=== PATIENT | male | born 1940 | race Caucasian/White ===

== ENCOUNTER 2019-07-30 01:33 | Emergency (ER) | payer OTHER ==
[~2019-07-30] VITALS: Ht 180.3 cm; Wt 77.1 kg
[2019-07-30 01:36] VITALS: BP_SYST 167
--- NOTE | 2019-07-30 01:38 | NUR ---
Patient to ER bed 5 to gown for evaluation. Side rails up. Report given to PETER DELGADO.
--- NOTE | 2019-07-30 02:00 | NUR ---
Dr. Huff bedside for Pt eval
--- NOTE | 2019-07-30 02:10 | NUR ---
Pt BIB [facility] C/O LEFT SHOULDER PAIN. No other complaints and or injuries noted VSS no s/s of acute distress Resting on gurney rails up
--- NOTE | 2019-07-30 02:38 | NUR ---
Portable X Ray bedside, well tolerated
--- NOTE | 2019-07-30 03:20 | NUR ---
Patient daugther given written and verbal discharge instructions by Dr Huff and verbalizes understanding. ER MD discussed with patient the results and treatment provided. Patient in stable condition. ID arm band removed. Rx of Naprosyn given. Patient educated on pain management and to follow up with PMD. Pain Scale 0/10. Opportunity for questions provided and answered. Medication side effect fact sheet provided.
[2019-07-30 03:21] VITALS: BP_SYST 150
== END 2019-07-30 03:21 | disposition home or self-care (01) ==
LOC: SED 01:33
DX: S43.402A Unspecified sprain of left shoulder joint, initial encounter (principal); W18.39XA Other fall on same level, initial encounter; Y93.89 Activity, other specified; Y92.128 Other place in nursing home as the place of occurrence of the external cause; Y99.8 Other external cause status
CPT/HCPCS: 73030; 99283

== ENCOUNTER 2019-10-15 16:32 | Emergency (ER) | payer OTHER ==
[~2019-10-15] VITALS: Ht 177.8 cm; Wt 77.1 kg
[2019-10-15 16:32] VITALS: BP_SYST 192
[2019-10-15] MEDS ORDERED: NACL 0.9% 1,000 ML IV ONE (16:36)
[2019-10-15] MEDS ORDERED: DEXTROSE 50% JECT 50 ML DISP.SYRIN ONE (16:54)
[2019-10-15] MEDS ORDERED: DEXTROSE 50% JECT 50 ML DISP.SYRIN IVP ONE (17:00)
[2019-10-15] MEDS ORDERED: KCL 30mEq in D5/0.45NS 1000 mL 1,000 ML IV ONE (17:00)
[2019-10-15 18:32] LABS: BASOPHILS % (AUTO) 0.5 % (0.0-2.0); EOSINOPHILS # (AUTO) 0.2 K/uL (0.0-0.4); HEMATOCRIT 33.3 % (36-54); HEMOGLOBIN 11.3 g/dL (14.0-18.0); LYMPHOCYTES # (AUTO) 1.5 K/uL (1.0-5.5); LYMPHOCYTES % (AUTO) 18.5 % (20.5-51.5); MEAN CORPUSCULAR HEMOGLOBIN 32 pg (27-31); MEAN CORPUSCULAR HGB CONC 34 % (32-36); MEAN CORPUSCULAR VOLUME 95 fL (79.0-98.0); MONOCYTES # (AUTO) 1.1 K/uL (0.0-1.0); MONOCYTES % (AUTO) 14.4 % (1.7-9.3); NEUTROPHILS # (AUTO) 5.1 K/uL (1.8-7.7); NEUTROPHILS % (AUTO) 64.6 % (40.0-70.0); PLATELET COUNT (AUTO) 233 K/uL (130-430); WHITE BLOOD COUNT (AUTO) 7.9 K/uL (4.8-10.8)
[2019-10-15 18:57] LABS: ANION GAP 13 (5-15); CALCIUM 10.1 mg/dL (8.4-11.0); CHLORIDE 101 mmol/L (98-107); CREATININE 1.26 mg/dL (0.55-1.30); POTASSIUM 3.4 mmol/L (3.5-5.1); SODIUM SERUM 139 mmol/L (136-145); UREA NITROGEN, BLOOD 27 mg/dL (8-21)
[2019-10-15 19:11] LABS: GLUCOSE 32 mg/dL (70-99)
[2019-10-15 19:22] LABS: ALANINE AMINOTRANSFERASE 15 U/L (12-78); ASPARTATE AMINOTRANSFERASE 23 U/L (10-37); TOTAL BILIRUBIN 0.2 mg/dL (0.0-1.0)
[2019-10-15 19:23] LABS: ALBUMIN 3.9 g/dL (3.4-4.8); AMYLASE 163 U/L (0-100); FREE T4 (FREE THYROXINE) 0.8 ng/dL (0.6-1.6); LIPASE 892 U/L (73-393); THYROID STIMULATING HORMONE 3.94 uIu/mL (0.34-4.82)
[2019-10-15 19:24] LABS: ACETAMINOPHEN < 1 ug/mL (1-30); ALCOHOL, BLOOD < 3 mg/dL (<10)
[2019-10-15 19:44] LABS: CKMB RELATIVE INDEX 2.2 (0.0-2.9); CREATINE KINASE MB 6.9 ng/mL (0-3.6)
[2019-10-15 19:54] LABS: INR 1.1 (0.80-1.20); PROTHROMBIN TIME 11.2 SECS (9.5-12.5)
[2019-10-15 21:28] VITALS: BP_SYST 142
== END 2019-10-15 21:28 | disposition home or self-care (01) ==
LOC: SED 16:32
DX: S09.90XA Unspecified injury of head, initial encounter (principal); E11.65 Type 2 diabetes mellitus with hyperglycemia; K21.9 Gastro-esophageal reflux disease without esophagitis; I10 Essential (primary) hypertension; G20 Parkinson's disease; X58.XXXA Exposure to other specified factors, initial encounter; Y93.89 Activity, other specified; Y92.89 Other specified places as the place of occurrence of the external cause; Y99.8 Other external cause status
CPT/HCPCS: 36415; 70450; 71045; 80053; 82150; 82550; 82553; 82962; 83690; 83880; 84439; 84443; 84479; 84484; 85025; 85610; 85730; 93005; 96361; 96374; 99285; G0480; G0481; G0482; 96375